=== PATIENT | female | born 1950 ===

== ENCOUNTER 2020-07-28 04:12 | Observation (INO) | payer OTHER, SELFPAY ==
[2020-07-28] VITALS (9 sets, daily range): BP systolic 106–127; BP diastolic 49–83; PULSE 68–89; RESP 18–20; TEMP 36.1–37; O2SAT 94–100
--- NOTE | 2020-07-28 | ECHO_ITS ---
Patient Info Name: Joya Monreal Age: 70 years : 1950 Gender: Female Ht: 64 in Wt: 189 lbs BSA: 2.00 m2 HR: 74 bpm BP: 127 / 69 mmHg Heart Rhythm: Sinus Rhythm Technical Quality: Fair Exam Date: 07/28/2020 11:35 AM Exam Location: [facility] Patient Status: Outpatient Admit Date: 07/28/2020 Staff Ordering Physician: Ashely Santacruz MD Clinic Administrator: Neena Rowe RDCS Attending Provider: Ashely Santacruz MD Exam Type: CA echo doppler color flow Study Info Indications - PE Complete two-dimensional, color flow and Doppler transthoracic echocardiogram is performed. Summary 1. Complete two-dimensional, color flow and Doppler transthoracic echocardiogram is performed. 2. Left ventricular systolic function is normal, estimated at 60-65%. 3. There is mildly increased left ventricular wall thickness. 4. The left ventricular diastolic function is grade I diastolic dysfunction. 5. There is no aortic valve stenosis. 6. There is trace mitral valve regurgitation. 7. There is trace tricuspid valve regurgitation. 8. No pulmonary hypertension, estimated pulmonary arterial systolic pressure is 22 mmHg. Left Ventricle Left ventricular chamber dimension is normal. Left ventricular systolic function is normal, estimated at 60-65%. There is mildly increased left ventricular wall thickness. The left ventricular diastolic function is grade I diastolic dysfunction. Right Ventricle Right ventricular chamber dimension is normal. Right ventricular systolic function is normal. Left Atria Left atrial chamber dimension is normal. Right Atria Right atrial chamber dimension is normal. Aortic Valve The aortic valve is not well visualized. There is no aortic valve stenosis. There is mild aortic valve regurgitation. Pulmonic Valve The pulmonic valve is not well visualized. Mitral Valve The mitral valve has thickened leaflets. There is trace mitral valve regurgitation. The mitral valve annulus is mildly calcified. Tricuspid Valve The tricuspid valve leaflets are normal. There is trace tricuspid valve regurgitation. No pulmonary hypertension, estimated pulmonary arterial systolic pressure is 22 mmHg. Pericardium/Pleural The pericardium appears normal. Inferior Vena Cava Normal inferior vena cava with >50% collapse upon inspiration consistent with normal right atrial pressure, 5 mmHg. Aorta The aortic root size at the sinus of Valsalva is normal. There is mild aortic atherosclerosis. Left Ventricular Outflow Tract Name Value Normal LVOT 2D LVOT Diameter 2.0 cm LVOT Doppler LVOT Peak Gradient 5 mmHg LVOT Mean Gradient 3 mmHg LVOT VTI 26 cm LVOT VTI/AV VTI Ratio 0.9 LVOT Stroke Volume 79 ml LVOT CO 5.0 l/min LVOT CI 2.5 l/min/m2 Pulmonic Valve Name Value
--- NOTE | ~2020-07-28 | CT_ITS ---
EXAMINATION: CTA chest PE protocol DATE: 07/30/2020 11:54 INDICATION: Left chest pain. TECHNIQUE: Computed tomography angiography (CTA) of the chest was performed with 100 mL Omnipaque-350 intravenous contrast timed to evaluate the pulmonary arteries. Coronal maximum intensity projection 3D-reconstructions were created by the technologist. Automated exposure control and iterative reconst ruction technique were employed. The dose-length product was 379.55 mGy-cm. COMPARISON: Chest CT 07/28/2020 FINDINGS: There is mild atelectasis bilaterally. There are airspace and groundglass opacities in basi lar left lower lobe. A calcified right lower lobe nodule is consistent with old granulomatous disease . There is a small left pleural effusion. The heart size is normal. 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 Again seen are acute pulmonary emboli in basilar left lower lobe. There is mild thorac ic spondylosis. IMPRESSION: 1. Unchanged distribution of acute pulmonary emboli in basilar left lower lobe. 2. Worsened airspace and groundglass opacities in basilar left lower lobe, consistent with infarct. 3. Worsened small left pleural effusion. Reviewed, dictated and finalized at location A. IMPRESSION: 1. Unchanged distribution of acute pulmonary emboli in basilar left lower lobe. 2. Worsened airspace and groundglass opacities in basilar left lower lobe, cons istent with infarct. 3. Worsened small left pleural effusion.
--- NOTE | ~2020-07-28 | US_ITS ---
EXAMINATION: US venous doppler LE EXAM DATE: 07/28/2020 14:43 INDICATION: Pulmonary emboli. TECHNIQUE: Multiple grayscale, color flow and Doppler images of the lower extremity deep venous syste ms bilaterally were obtained and reviewed. Comparison is made to prior examination from 10/21/2017. Co rrelation was made with pulmonary CT from earlier same date. FINDINGS: Right side: The right common femoral, femoral and profunda veins demonstrate normal color flow, respi ratory variation, augmentation and compressibility. Compressibility, color flow confirmed within the right popliteal, posterior tibial, peroneal, and greater saphenous veins. Left side: The left common femoral, femoral and profunda veins demonstrate normal color flow, respira tory variation, augmentation and compressibility. Compressibility, color flow confirmed within the l eft popliteal, posterior tibial, peroneal, and greater saphenous veins. IMPRESSION: 1. No lower extremity deep venous thrombosis bilaterally. Reviewed, dictated and finalized at location A.
--- NOTE | ~2020-07-28 | CT_ITS ---
EXAMINATION: CTA chest PE abdomen pel DATE: 07/28/2020 05:35 INDICATION: Chest pain. Left abdominal pain. TECHNIQUE: Computed tomography angiography (CTA) of the chest was performed with 100 mL Omnipaque-350 intravenous contrast timed to evaluate the pulmonary arteries. Coronal maximum intensity projection 3D-reconstructions were created by the technologist. Computed tomography (CT) of the abdomen and pelv is was performed with intravenous contrast. Automated exposure control and iterative reconstruction t echnique were employed. The dose-length product was 1268.70 mGy-cm. COMPARISON: Chest CT 10/20/2017 FINDINGS: CTA chest: The lungs demonstrate mild atelectasis. There is a stable 6 mm nodule in right middle lobe , likely benign. A calcified right lung nodule is consistent with old granulomatous disease. There is a trace left pleural effusion. The heart size is normal. No pericardial effusion. There are acute pu lmonary emboli in left lower lobe. CT abdomen and pelvis: The liver and gallbladder are normal. Calcifications in the spleen are consist ent with old granulomatous disease. The pancreas, adrenal glands, and kidneys are normal. There is fa t stranding at the root of the small bowel mesentery, likely edema or inflammation/scarring. There is diverticulosis of the colon without evidence of diverticulitis. There are no dilated loops of bowel. The appendix is not visualized. There are no pathologically enlarged lymph nodes. There is no free i ntraperitoneal fluid. There is severe lumbar spondylosis. IMPRESSION: 1. Acute left lower lobe pulmonary emboli. 2. Fat stranding at the root of the small bowel mesentery, likely edema or inflammation/scarring (mes enteric panniculitis). Reviewed, dictated and finalized at location A. IMPRESSION: 1. Acute left lower lobe pulmonary emboli. 2. Fat stranding at the root of the small bowel mesentery, likely edema or infl ammation/scarring (mesenteric panniculitis).
--- NOTE | 2020-07-28 04:34 | ECG_ITS ---
Measurements Intervals [place] Rate: 75 P: 44 ID: [id number] QRS: -30 QRSD: 102 T: 49 QT: 374 QTc: 420 Interpretive Statements SINUS RHYTHM BASELINE ARTIFACT- I, II, III, AVR, AVL, AVF, V2-V3 NORMAL ECG Electronically Signed On 07-28-2020 6:58:06 CDT by Vince Aj D.O.
--- NOTE | 2020-07-28 04:36 | ED.GENADULT ---
HPI - General Adult General Chief complaint: Chest Pain Stated complaint: chest pain Time Seen by Provider: 07/28/20 04:28 History of Present Illness HPI narrative: Patient is a 70-year-old female who presents to the emergency department with chief complaint of chest pain and shortness of breath. Patient reports that she had sudden onset this morning of sharp chest pain on the left side of her chest that radiates to her neck. Patient states this feels similar to whenever she had a pulmonary embolism back in 2012 patient states that she has been off of anticoagulants for several years as they thought that it was just a sporadic occurrence of the pulmonary embolism. Patient states that tonight it feels very similar to whenever she is had the PE in the past denies history of cardiac disease also reports that she has some mild tenderness in her abdomen as well patient denies fever denies cough denies trauma. Patient denies any recent surgeries or other increased risk for thromboembolic event. Related Data Allergies Allergy/AdvReac Type Severity Reaction Status Date / Time atorvastatin Allergy Unknown Verified 03/08/12 13:09 No Known Allergies Allergy Unverified 10/20/17 21:34 Review of Systems Review of Systems: Narrative: A 10 system review of systems was completed on the patient and is negative except for what is stated in the HPI. Nursing and ancillary documentation was reviewed. [facility] Family History Family History (Updated 10/30/15 @ 23:21 by DOCTOR UNKNOWN) Sibling Patient's sister is in good health Mother Family history of malignant neoplasm of breast in first degree relative Patient's mother is Father Family history of malignant neoplasm of esophagus Patient's father is Social History Social History Smoking status: Never smoker Alcohol intake: current Comments Past medical history significant for pulmonary embolism, hypothyroidism, anxiety. Surgical history the patient has had a shoulder repair Social history the patient lives with her denies illicit drug use Exam Narrative: Exam Narrative: GENERAL: Well-appearing, well-nourished, and in no acute distress. HEAD: Normocephalic, atraumatic. EYES: PERRLA and EOMI. ENT: Nares clear, no rhinorrhea or epistaxis. Mucous membranes moist. NECK: Supple. CHEST: Clear to auscultation. No respiratory distress. HEART: Regular rate and rhythm. No murmur heard. Normal peripheral pulses. ABDOMEN: Soft, nontender, nondistended, normal active bowel sounds. EXTREMITIES: Normal range of motion. No edema. SKIN: Warm, dry, no rash. NEURO: No focal deficits. Alert and oriented x3. PSYCH: Normal mood and affect. Course Course Emergency Course: EKG is sinus rhythm rate of [address] elevation or ST depression there is motion artifact in V2 Vital Signs Vital signs: Vital Signs Temperature 36.3 C L 07/28/20 04:19 Pulse Rate 89 07/28/20 04:19 Respiratory Rate 19 07/28/20 04:19 Blood Pressure 123/70 07/28/20 04:19 Pulse Oximetry 97 07/28/20 04:19 Temperature 36.3 C L 07/28/20 04:19 Pulse Rate 76 07/28/20 06:26 Respiratory Rate 20 07/28/20 06:26 Blood Pressure 114/56 L 07/28/20 06:26 Pulse Oximetry 98 07/28/20 06:26 Medical Decision Making Vital Signs Vital Signs: Vital Signs Temperature 36.3 C L 07/28/20 04:19 Pulse Rate 89 07/28/20 04:19 Respiratory Rate 19 07/28/20 04:19 Blood Pressure 123/70 07/28/20 04:19 Pulse Oximetry 97 07/28/20 04:19 Temperature 36.3 C L 07/28/20 04:19 Pulse Rate 76 07/28/20 06:26 Respiratory Rate 20 07/28/20 06:26 Blood Pressure 114/56 L 07/28/20 06:26 Pulse Oximetry 98 07/28/20 06:26 Lab Data Result diagrams: 07/28/20 04:53 07/28/20 04:53 Labs: Lab Results 07/28/20 07/28/20 07/28/20 Range/Units 04:53 04:53 04:53 WBC 7.4 (4.5-10.0) K/mm3 RBC 4.78 (4.2-5.4) M
[2020-07-28] MEDS: ASPIRIN 81 MG CHEWABLE TABLET 324 MG PO (04:44)
[2020-07-28] MEDS: ONDANSETRON INJ 4 MG/2 ML VIAL IV PUSH ×2 (04:44→13:09)
[2020-07-28] MEDS: MORPHINE SULFATE (*CRX) 4 MG/ML INJ IV PUSH ×5 (04:45→20:58)
[2020-07-28 05:02] LABS: Basophils Absolute Auto 0.1 K/mm3 (0.0-0.1); Basophils Percent Auto 0.9 % (0.2-1.2); Eosinophils Absolute Auto 0.2 K/mm3 (0-0.3); Eosinophils Percent Auto 3.1 % (0-4.4); Hematocrit 42.4 % (37.0-47.0); Hemoglobin 14.3 g/dL (12.0-15.0); Immature Granulocyte Absolute 0.02 K/mm3 (0.00-0.031); Immature Granulocyte Percent A 0.3 % (0-0.5); Lymphocytes Absolute Auto 2.59 K/mm3 (0.9-3.2); Mean Corpuscular HGB Conc 33.7 g/dl (32-36); Mean Corpuscular Hemoglobin 29.9 pg (26-34); Mean Corpuscular Volume 88.7 fl (80-100); Mean Platelet Volume 9.8 fl (7.4-10.4); Monocytes Absolute Auto 0.6 K/mm3 (0.1-0.6); Monocytes Percent Auto 7.6 % (2.6-8.5); Neutrophils Absolute Auto 3.9 K/mm3 (1.3-6.7); Neutrophils Percent Auto 53.1 % (45.5-73.1); Platelet Count Result 221 k/mm3 (150-375); Red Blood Count 4.78 M/mm3 (4.2-5.4); Red Cell Distribution Width 13.4 % (11.5-14.5); White Blood Count 7.4 K/mm3 (4.5-10.0)
[2020-07-28 05:15] LABS: Alanine Aminotransferase 18 U/L (4-35); Albumin Level 4.7 g/dL (3.5-5.1); Alkaline Phosphatase 109 U/L (38-126); Anion Gap 7 mmol/L (8-16); Aspartate Amino Transferase 27 U/L (14-36); Bilirubin,Total 0.7 mg/dL (0.2-1.3); Blood Urea Nitrogen 18 mg/dL (7-17); Calcium 9.4 mg/dL (8.4-10.2); Carbon Dioxide 29 mmol/L (22-30); Chloride 105 mmol/L (98-107); Estimated CRCL calculation 56 ml/min; Estimated Glomerular Filt Rate > 60; Glucose 124 mg/dL (65-105); Lipase 72 U/L (23-300); Potassium 4.1 mmol/L (3.4-5.0); Sodium 141 mmol/L (137-145)
[2020-07-28 05:16] LABS: INR 0.9; Partial Thromboplastin Time 30.6 SECONDS (22.3-36.8); Prothrombin Time 12.7 Seconds (11.1-14.7)
[2020-07-28] MEDS: NITROGLYCERIN SL 0.4 MG TABLET SUBLINGUAL (05:17)
--- NOTE | 2020-07-28 05:22 | PC.NURSE ---
pt to radiology at this time.
[2020-07-28 05:27] LABS: NT Pro B Type Natriuretic Pept 45 pg/mL (5-100); Troponin I < 0.012 ng/mL (0.000-0.034)
--- NOTE | 2020-07-28 05:34 | PC.NURSE ---
Per ALKA Ferrer, no UA needed at this time.
[2020-07-28] MEDS: HEPARIN SODIUM 5,000 UNITS/ML VIAL 5500 UNITS IV PUSH (06:28)
[2020-07-28] MEDS: HEPARIN SOD/D5W 100 UNITS/ML 25,000 UNITS/250 ML BAG 12 UNITS IV CONT (06:30)
--- NOTE | 2020-07-28 08:00 | ADMGEN ---
This patient, Joya Monreal, was admitted to Medical Room 250-01. Patient/family oriented to hospital policies and general routines including ID bracelet, bed and alarms, visiting hours, pain management, procedures, bathroom and other care routines, personal items, smoking policy, room service/diet, and visiting hours. Information on how to activate the Rapid Response Team has been discussed. Patient/Family are encouraged to report perceived risks to care and to ask questions if they do not understand what they are told or what they should do.
[2020-07-28 08:29] LABS: Basophils Absolute Auto 0.1 K/mm3 (0.0-0.1); Basophils Percent Auto 0.6 % (0.2-1.2); Eosinophils Absolute Auto 0.2 K/mm3 (0-0.3); Eosinophils Percent Auto 2.2 % (0-4.4); Hematocrit 40.3 % (37.0-47.0); Hemoglobin 13.5 g/dL (12.0-15.0); Immature Granulocyte Absolute 0.01 K/mm3 (0.00-0.031); Immature Granulocyte Percent A 0.1 % (0-0.5); Lymphocytes Absolute Auto 1.83 K/mm3 (0.9-3.2); Lymphocytes Percent Auto 20.6 % (18.3-44.2); Mean Corpuscular HGB Conc 33.5 g/dl (32-36); Mean Corpuscular Hemoglobin 29.5 pg (26-34); Mean Corpuscular Volume 88.2 fl (80-100); Mean Platelet Volume 9.9 fl (7.4-10.4); Monocytes Absolute Auto 0.5 K/mm3 (0.1-0.6); Monocytes Percent Auto 5.6 % (2.6-8.5); Neutrophils Absolute Auto 6.3 K/mm3 (1.3-6.7); Neutrophils Percent Auto 70.9 % (45.5-73.1); Platelet Count Result 201 k/mm3 (150-375); Red Blood Count 4.57 M/mm3 (4.2-5.4); Red Cell Distribution Width 13.6 % (11.5-14.5); White Blood Count 8.9 K/mm3 (4.5-10.0)
[2020-07-28 08:36] LABS: Prothrombin Time 14.1 Seconds (11.1-14.7)
[2020-07-28 08:37] LABS: Troponin I < 0.012 ng/mL (0.000-0.034)
--- NOTE | 2020-07-28 10:42 | PM.IMHP ---
H&P: HPI History of Present Illness Date/Time: 07/28/20 10:42 patient is 70-year-old female with a past medical history of pulmonary emboli not sure exact date 2012 or 2015 patient was was given heparin for 6 months, and it was stopped, today patient presented emergency depart with complaint of chest pain patient stated her symptoms are similar to when she had her 1st PE, CTA of the chest does show patient has acute left lower lobe pulmonary emboli. Patient started on heparin from emergency depart, so the chest pain has improved, patient 3 sets of cardiac enzymes are negative [place] was ruled out, to further evaluate cardiac echo lower extremity Doppler are ordered and are pending. 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 the pain is is controlled is not bothersome patient will follow-up with her primary further recommended, will continue to monitor overnight and switch patient to Xarelto and discharge the patient home Chief Complaint: Chest pain Review of Systems Review of Systems: All systems reviewed & are unremarkable except as noted in HPI and below PMFSH Family History Family History (Updated 10/30/15 @ 23:21 by DOCTOR UNKNOWN) Sibling Patient's sister is in good health Mother Family history of malignant neoplasm of breast in first degree relative Patient's mother is Father Family history of malignant neoplasm of esophagus Patient's father is Social History Social History Smoking status: Never smoker Alcohol intake: never Substance use: never Gender identity (if verbalized by the patient): Female Spiritual care concerns: No Meds Home Medications and Allergies Home Medications Medication Instructions Recorded Confirmed Type atorvastatin 20 mg PO DAILY 07/28/20 07/28/20 History levothyroxine 150 mcg PO DAILY 07/28/20 07/28/20 History sertraline 100 mg PO DAILY 07/28/20 07/28/20 History Allergies Allergy/AdvReac Type Severity Reaction Status Date / Time atorvastatin Allergy Unknown Fatigued Verified 07/28/20 08:09 Vital Signs Vital Signs - 24 hr 07/28/20 04:19 07/28/20 06:26 07/28/20 07:00 Temperature 97.3 F L Pulse Rate 89 76 73 Respiratory Rate 19 20 18 Blood Pressure 123/70 114/56 L Pulse Oximetry 100 98 96 07/28/20 08:00 Temperature 98.6 F Pulse Rate 71 Respiratory Rate 18 Blood Pressure 127/69 Pulse Oximetry 97 Exam Narrative: Exam Narrative: Moderately obese Patient is comfortable, NAD HEENT: eyes are clear and none icteric LUNGS: Bilateral fair air entry minimum rhonchi HEART: RR S1S2 ABD: BS+, Soft and diffusely tender in left lower side Lower extremities: no edema SKIN: nonjaundiced Neuro: grossly intact. H&P: Results Labs Labs: Short CBC 07/28/20 07/28/20 Range/Units 04:53 07:47 WBC 7.4 8.9 (4.5-10.0) K/mm3 Hgb 14.3 13.5 (12.0-15.0) g/dL Hct 42.4 40.3 (37.0-47.0) % Plt Count 221 201 (150-375) k/mm3 BMP 07/28/20 04:53 Sodium 141 Potassium 4.1 Chloride 105 Carbon Dioxide 29 BUN 18 H Creatinine 0.90 Glucose 124 H Calcium 9.4 Cardiac Enzymes 07/28/20 07/28/20 Range/Units 04:53 07:47 Troponin I < 0.012 < 0.012 (0.000-0.034) ng/mL Liver Function 07/28/20 Range/Units 04:53 Total Bilirubin 0.7 (0.2-1.3) mg/dL AST 27 (14-36) U/L ALT 18 (4-35) U/L Alkaline Phosphatase 109 (38-126) U/L Albumin 4.7 (3.5-5.1) g/dL Assessment and Plan Assessment and plan (1) Acute pulmonary embolism: Qualifiers: Acute cor pulmonale presence: without acute cor pulmonale Pulmonary embolism type: unspecified Qualified Code(s): I26.99 - Other pulmonary embolism without acute cor pulmonale Code(s): I26.99 - Other pulmonary embolism without acute cor pulmonale Status: Acute Assessment and Plan: 07/28/20 10:42 patient is 70-year-old female with a past m
[2020-07-28 11:20] LABS: Troponin I < 0.012 ng/mL (0.000-0.034)
[2020-07-28 18:21] LABS: Partial Thromboplastin Time 59.8 SECONDS (22.3-36.8)
[2020-07-28] MEDS: HEPARIN SODIUM 5,000 UNITS/ML VIAL 2500 UNITS IV PUSH (18:30)
[2020-07-29] VITALS (10 sets, daily range): BP systolic 113–115; BP diastolic 49–66; PULSE 69–77; RESP 14–20; TEMP 36.1–36.7; O2SAT 91–96
[2020-07-29] MEDS: MORPHINE SULFATE (*CRX) 4 MG/ML INJ IV PUSH (00:50)
--- NOTE | 2020-07-29 01:00 | ECG_ITS ---
Measurements Intervals [place] Rate: 77 P: 40 WV: 177 QRS: -23 QRSD: 105 T: 30 QT: 369 QTc: 418 Interpretive Statements SINUS RHYTHM BASELINE ARTIFACT- II, III, AVF NORMAL ECG Electronically Signed On 07-29-2020 15:36:38 CDT by Vince Aj D.O.
[2020-07-29] MEDS: HYDROcodone/acetaminophen (*CRX) 5-325 MG TABLET 1 TAB (02:40)
[2020-07-29 04:45] LABS: Troponin I < 0.012 ng/mL (0.000-0.034)
[2020-07-29 04:58] LABS: Partial Thromboplastin Time 86.1 SECONDS (22.3-36.8)
[2020-07-29] MEDS: HEPARIN SOD/D5W 100 UNITS/ML 25,000 UNITS/250 ML BAG 13 UNITS IV CONT (05:10)
--- NOTE | 2020-07-29 05:23 | PC.NURSE ---
At 0100 pt states Lt side chest pain is worse with no relief from MS, skin warm and dry no resp. distress noted, B/P 107/47, p-78.R-20,SPO2 94%.Malgorzata NARANJO called and EKG and troponin ordered.
[2020-07-29 07:03] LABS: Basophils Percent Auto 0.5 % (0.2-1.2); Eosinophils Absolute Auto 0.2 K/mm3 (0-0.3); Hematocrit 37.9 % (37.0-47.0); Hemoglobin 12.6 g/dL (12.0-15.0); Immature Granulocyte Absolute 0.03 K/mm3 (0.00-0.031); Immature Granulocyte Percent A 0.4 % (0-0.5); Lymphocytes Absolute Auto 2.07 K/mm3 (0.9-3.2); Lymphocytes Percent Auto 26.2 % (18.3-44.2); Mean Corpuscular HGB Conc 33.2 g/dl (32-36); Mean Corpuscular Hemoglobin 29.6 pg (26-34); Mean Platelet Volume 9.5 fl (7.4-10.4); Monocytes Absolute Auto 0.8 K/mm3 (0.1-0.6); Monocytes Percent Auto 9.5 % (2.6-8.5); Neutrophils Absolute Auto 4.8 K/mm3 (1.3-6.7); Neutrophils Percent Auto 60.4 % (45.5-73.1); Platelet Count Result 168 k/mm3 (150-375); Red Blood Count 4.26 M/mm3 (4.2-5.4); Red Cell Distribution Width 13.7 % (11.5-14.5); White Blood Count 7.9 K/mm3 (4.5-10.0)
[2020-07-29 07:18] LABS: Anion Gap 5 mmol/L (8-16); Blood Urea Nitrogen 11 mg/dL (7-17); Calcium 8.8 mg/dL (8.4-10.2); Carbon Dioxide 29 mmol/L (22-30); Chloride 102 mmol/L (98-107); Estimated CRCL calculation 62 ml/min; Estimated Glomerular Filt Rate > 60; Glucose 120 mg/dL (65-105); Potassium 4.1 mmol/L (3.4-5.0); Sodium 136 mmol/L (137-145)
[2020-07-29 07:22] LABS: Partial Thromboplastin Time 64.9 SECONDS (22.3-36.8)
[2020-07-29] MEDS: HYDROcodone/acetaminophen (*CRX) 5-325 MG TABLET 1 TAB PO ×2 (08:17→18:29)
[2020-07-29] MEDS: HEPARIN SODIUM 5,000 UNITS/ML VIAL 2500 UNITS IV PUSH (08:23)
--- NOTE | 2020-07-29 12:35 | PM.IMPN ---
Progress Note: A&P Assessment and Plan (1) Acute pulmonary embolism: Qualifiers: Acute cor pulmonale presence: without acute cor pulmonale Pulmonary embolism type: unspecified Qualified Code(s): I26.99 - Other pulmonary embolism without acute cor pulmonale Code(s): I26.99 - Other pulmonary embolism without acute cor pulmonale Status: Acute Assessment and Plan: 07/29/20 12:35 07/28 patient is 70-year-old female with a past medical history of pulmonary emboli not sure exact date 2012 or 2015 patient was was given heparin for 6 months, and it was stopped, today patient presented emergency depart with complaint of chest pain patient stated her symptoms are similar to when she had her 1st PE, CTA of the chest does show patient has acute left lower lobe pulmonary emboli. Patient started on heparin from emergency depart, so the chest pain has improved, patient 3 sets of cardiac enzymes are negative [place] was ruled out, to further evaluate cardiac echo lower extremity Doppler are ordered and are pending. 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 Status: Acute Additional Plan Patient pain is reasonably well controlled most likely secondary to stress and inflammation patient will follow-up with her primary care for further evaluation and management Subjective Date/time seen: 07/29/20 12:35 07/28 patient is 70-year-old female with a past medical history of pulmonary emboli not sure exact date 2012 or 2015 patient was was given heparin for 6 months, and it was stopped, today patient presented emergency depart with complaint of chest pain patient stated her symptoms are similar to when she had her 1st PE, CTA of the chest does show patient has acute left lower lobe pulmonary emboli. Patient started on heparin from emergency depart, so the chest pain has improved, patient 3 sets of cardiac enzymes are negative [place] was ruled out, to further evaluate cardiac echo lower extremity Doppler are ordered and are pending. 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 07/29 patient with left lower lobe PE complains of left-sided chest pain the pain is rated sometime 10/10 but is controlled with [place], denies any complaint shortness of breath or dizziness, her cardiac echo is essentially normal, lower extremity Doppler are negative for DVT, will monitor patient 1 more day and continue on heparin if the pain persists will repeat CTA of the chest tomorrow as we are not able to to the CTA of the chest today since patient received contrast yesterday to prevent any kidney damage Review of Systems Review of Systems: All systems reviewed & are unremarkable except as noted in HPI and below Exam Narrative: Exam Narrative: Moderately obese Patient is comfortable, NAD HEENT: eyes are clear and none icteric LUNGS: Bilateral fair air entry minimum rhonchi HEART:
--- NOTE | 2020-07-29 13:43 | PC.NURSE ---
On 07/29/20, the student, [Lydia Sow ], provided care and [facility]. I have reviewed the student's documentation and agree with the findings.
[2020-07-29 14:55] LABS: Partial Thromboplastin Time 77.9 SECONDS (22.3-36.8)
[2020-07-29 20:48] LABS: Partial Thromboplastin Time 91.4 SECONDS (22.3-36.8)
[2020-07-29 22:09] LABS: Prothrombin Time 13.9 Seconds (11.1-14.7)
[2020-07-30] VITALS (8 sets, daily range): BP systolic 124–130; BP diastolic 47–62; PULSE 67–100; RESP 16–20; TEMP 36.6–37.2; O2SAT 94–95
[2020-07-30] MEDS: HEPARIN SOD/D5W 100 UNITS/ML 25,000 UNITS/250 ML BAG 14 UNITS IV CONT (01:35)
[2020-07-30 05:32] LABS: Hematocrit 38.3 % (37.0-47.0); Hemoglobin 12.7 g/dL (12.0-15.0); Mean Corpuscular HGB Conc 33.2 g/dl (32-36); Mean Corpuscular Hemoglobin 29.8 pg (26-34); Mean Corpuscular Volume 89.9 fl (80-100); Mean Platelet Volume 9.8 fl (7.4-10.4); Platelet Count Result 177 k/mm3 (150-375); Red Blood Count 4.26 M/mm3 (4.2-5.4); Red Cell Distribution Width 13.4 % (11.5-14.5); White Blood Count 6.2 K/mm3 (4.5-10.0)
[2020-07-30 05:49] LABS: Prothrombin Time 13.7 Seconds (11.1-14.7)
[2020-07-30 06:07] LABS: Anion Gap 2 mmol/L (8-16); Blood Urea Nitrogen 11 mg/dL (7-17); Calcium 8.7 mg/dL (8.4-10.2); Carbon Dioxide 32 mmol/L (22-30); Chloride 103 mmol/L (98-107); Estimated CRCL calculation 70 ml/min; Estimated Glomerular Filt Rate > 60; Glucose 113 mg/dL (65-105); Potassium 3.7 mmol/L (3.4-5.0); Sodium 137 mmol/L (137-145)
[2020-07-30 08:44] LABS: Partial Thromboplastin Time 127.6 SECONDS (22.3-36.8)
[2020-07-30] MEDS: HYDROcodone/acetaminophen (*CRX) 5-325 MG TABLET 1 TAB PO (13:57)
[2020-07-30 15:24] LABS: Partial Thromboplastin Time 75.6 SECONDS (22.3-36.8)
--- NOTE | 2020-07-30 17:01 | PM.CNPUL ---
Assessment and Plan Assessment and plan (1) Acute pulmonary embolism: Qualifiers: Acute cor pulmonale presence: without acute cor pulmonale Pulmonary embolism type: unspecified Qualified Code(s): I26.99 - Other pulmonary embolism without acute cor pulmonale Code(s): I26.99 - Other pulmonary embolism without acute cor pulmonale Status: Acute Assessment and Plan: Patient currently with left lower lobe PE and wedge-shaped infiltrates on her CT scan consistent with pulmonary infarction. Patient with continued pleuritic chest pain on the left which can be expected with a pulmonary infarction. I agree with continuation of anticoagulation at this time. Patient has no complications from her anticoagulation in the hospital now. I agree with initiation of ibuprofen 400 mg p.o. Q 6 p.r.n. and try to minimize the narcotics. Regarding her PE at this time patient did have a plane ride for 3 hours from [place] on 07/20. She has no history of cancer but she does have a history of a previous PE in 2012. I do not know the details of that pulmonary embolism and whether that was provoked or unprovoked. In my opinion giving her low risk of bleeding and a 2nd PE I would favor lifelong anticoagulation at this point. Patient is 70 and now has a history of 2 pulmonary embolisms. She may have a genetic predisposition to blood clot formation and this may have implications for her treatment as well as implications for her children. Recommend further discussions with a strategy director regarding the utility of a hypercoagulable workup at this point. Patient can be discharged home from my perspective. Will sign off. Please call for further questions. History of Present Illness History of Present Illness Consult date: 07/30/20 Requesting physician: Ashely Santacruz MD Reason for consult: pulmonary embolism Chief complaint: Acute pulmonary embolism Narrative: This is a new pulmonary consult for left lower lobe PE and left pleuritic chest pain. 70-year-old woman with a history of PE in 2012. At that time she was initially treated with Coumadin but then converted to shots. She does not know why she was converted to shots. She was treated for 6 months and then her physician told her to stop the anti coagulation. Patient took a plane ride from [place] to her current location in [facility] on 07/20. She noticed no swelling in her lower extremities at that time. 04/06/2026 the patient to woke up at night with left-sided neck and shoulder pain. Patient presented to the emergency department and was found to have left lower lobe pulmonary emboli. Patient was started on IV heparin. Patient denied any dizziness syncope and had some shortness of breath. Patient continued with left-sided pleuritic chest pain rated at 8 of 10 on deep breathing and 7 of 10 on shallow breathing on 07/30. Patient had a repeat CT scan of the chest demonstrating wedge-shaped infarctions that had progressed since her prior CT scan. Patient has been hemodynamically stable. Patient denies any shortness of breath at rest and has some dyspnea on exertion. Patient is not requiring supplemental oxygen at this point. Patient denies any hemoptysis, cough, fever, phlegm production at this time. Review of Systems Review of Systems: All systems reviewed & are unremarkable except as noted in HPI and below Eyes: Eyes: Reports no additional eye complaints ENT: Reports system reviewed and no additional complaints, except as documented Cardiovascular: Cardiovascular: Reports no additional cardiovascular complaints Respiratory: Respiratory: Reports no additional respiratory complaints Gastrointestinal: Gastrointestinal: Reports no additional gastrointestinal complaints Musculoskeletal: Musculoskeletal: Reports no additional musculoskeletal complaints Integumentary/Breasts: Skin/Breast: Reports system reviewed and no additional complaints, except as docu Ne
--- NOTE | 2020-07-30 17:03 | PM.IMPN ---
Progress Note: A&P Assessment and Plan (1) Acute pulmonary embolism: Qualifiers: Acute cor pulmonale presence: without acute cor pulmonale Pulmonary embolism type: unspecified Qualified Code(s): I26.99 - Other pulmonary embolism without acute cor pulmonale Code(s): I26.99 - Other pulmonary embolism without acute cor pulmonale Status: Acute Assessment and Plan: 07/30/20 17:03 07/28 patient is 70-year-old female with a past medical history of pulmonary emboli not sure exact date 2012 or 2015 patient was was given heparin for 6 months, and it was stopped, today patient presented emergency depart with complaint of chest pain patient stated her symptoms are similar to when she had her 1st PE, CTA of the chest does show patient has acute left lower lobe pulmonary emboli. Patient started on heparin from emergency depart, so the chest pain has improved, patient 3 sets of cardiac enzymes are negative AR was ruled out, to further evaluate cardiac echo lower extremity Doppler are ordered and are pending. 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 07/29 patient with left lower lobe PE complains of left-sided chest pain the pain is rated sometime 10/10 but is controlled with [place], denies any complaint shortness of breath or dizziness, her cardiac echo is essentially normal, lower extremity Doppler are negative for DVT, will monitor patient 1 more day and continue on heparin if the pain persists will repeat CTA of the chest tomorrow as we are not able to to the CTA of the chest today since patient received contrast yesterday to prevent any kidney damage. 07/30 patient contine to c/o left sided CP with deep breath, cough and with movement, there are no associated symptoms of shortness breath or palpitation, no fever or chills, to further evaluate repeat CTA of chest was done which showed 1. Unchanged distribution of acute pulmonary emboli in basilar left lower lobe. 2. Worsened airspace and groundglass opacities in basilar left lower lobe, consistent with infarct. Discussed with crop or livestock tenant farmer recommended start NSAID, patient is given Ibuprofen 400mg PO q6 PRN, patient will be seen by the pulmologist and further recommendation to follow. 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 Status: Acute Assessment and Plan: Patient pain is reasonably well controlled most likely secondary to stress and inflammation patient will follow-up with her primary care for further evaluation and management Subjective Date/time seen: 07/30/20 17:03 07/28 patient is 70-year-old female with a past medical history of pulmonary emboli not sure exact date 2012 or 2015 patient was was given heparin for 6 months, and it was stopped, today patient presented emergency depart with complaint of chest pain patient stated her symptoms are similar to when she had her 1st PE, CTA of the chest does show patient has acute left lower lobe pulmonary emboli. Patient started on heparin from emergency depart, so the chest pain has improved, patient 3 sets of cardiac enzymes are negative AR was ruled out, to further evaluate cardiac echo lower extremity Doppler are ordered and are pending. 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 07/29 patient with left lower lobe PE complains of left-sided chest pain the pain is rated sometime 10/10 but is controlled with [place], denies any complaint shortness of breath or dizziness, her cardiac echo i
[2020-07-30] MEDS: RIVAROXABAN 15 MG TABLET PO (18:45)
[2020-07-31] VITALS: PULSE 65
[2020-07-31 04:00] VITALS: PULSE 69
[2020-07-31 04:30] VITALS: BP 125/63; PULSE 65; RESP 16; TEMP 36.6; O2SAT 93
[2020-07-31 05:37] LABS: Hemoglobin 12.9 g/dL (12.0-15.0); Mean Corpuscular HGB Conc 33.1 g/dl (32-36); Mean Corpuscular Hemoglobin 29.9 pg (26-34); Mean Corpuscular Volume 90.3 fl (80-100); Mean Platelet Volume 9.4 fl (7.4-10.4); Platelet Count Result 191 k/mm3 (150-375); Red Blood Count 4.32 M/mm3 (4.2-5.4); Red Cell Distribution Width 13.2 % (11.5-14.5)
[2020-07-31 05:49] LABS: Anion Gap 2 mmol/L (8-16); Blood Urea Nitrogen 12 mg/dL (7-17); Calcium 8.7 mg/dL (8.4-10.2); Carbon Dioxide 33 mmol/L (22-30); Chloride 104 mmol/L (98-107); Estimated CRCL calculation 62 ml/min; Estimated Glomerular Filt Rate > 60; Glucose 120 mg/dL (65-105); Potassium 4.1 mmol/L (3.4-5.0); Sodium 139 mmol/L (137-145)
[2020-07-31 06:14] LABS: INR 1.4; Prothrombin Time 17.7 Seconds (11.1-14.7)
[2020-07-31] MEDS: LEVOTHYROXINE SODIUM 150 MCG TABLET PO (06:16)
[2020-07-31 08:00] VITALS: PULSE 72
[2020-07-31] MEDS: ATORVASTATIN 20 MG TABLET PO (08:07)
[2020-07-31] MEDS: RIVAROXABAN 15 MG TABLET PO (08:07)
[2020-07-31] MEDS: SERTRALINE HCL 50 MG TABLET 100 MG PO (08:07)
--- NOTE | 2020-07-31 10:12 | PM.DS ---
DS: Admitting Diagnosis Admitting Diagnosis Admitting Diagnosis: Chief Complaint: Chest pain DS: Discharge Diagnosis Discharge Diagnosis (1) Acute pulmonary embolism: Qualifiers: Acute cor pulmonale presence: without acute cor pulmonale Pulmonary embolism type: unspecified Qualified Code(s): I26.99 - Other pulmonary embolism without acute cor pulmonale Code(s): I26.99 - Other pulmonary embolism without acute cor pulmonale Status: Acute Assessment and Plan: 07/30/20 17:03 07/28 patient is 70-year-old female with a past medical history of pulmonary emboli not sure exact date 2012 or 2015 patient was was given heparin for 6 months, and it was stopped, today patient presented emergency depart with complaint of chest pain patient stated her symptoms are similar to when she had her 1st PE, CTA of the chest does show patient has acute left lower lobe pulmonary emboli. Patient started on heparin from emergency depart, so the chest pain has improved, patient 3 sets of cardiac enzymes are negative [place] was ruled out, to further evaluate cardiac echo lower extremity Doppler are ordered and are pending. 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 07/29 patient with left lower lobe PE complains of left-sided chest pain the pain is rated sometime 10/10 but is controlled with [place], denies any complaint shortness of breath or dizziness, her cardiac echo is essentially normal, lower extremity Doppler are negative for DVT, will monitor patient 1 more day and continue on heparin if the pain persists will repeat CTA of the chest tomorrow as we are not able to to the CTA of the chest today since patient received contrast yesterday to prevent any kidney damage. 07/30 patient contine to c/o left sided CP with deep breath, cough and with movement, there are no associated symptoms of shortness breath or palpitation, no fever or chills, to further evaluate repeat CTA of chest was done which showed 1. Unchanged distribution of acute pulmonary emboli in basilar left lower lobe. 2. Worsened airspace and groundglass opacities in basilar left lower lobe, consistent with infarct. Discussed with power truck driver recommended start NSAID, patient is given Ibuprofen 400mg PO q6 PRN, patient will be seen by the pulmologist and further recommendation to follow. Patient is clinically stable, will discharge home on Xarelto, Patient to follow up with primary care provider as soon as possible. 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 Status: Acute Assessment and Plan: Patient pain is reasonably well controlled most likely secondary to stress and inflammation patient will follow-up with her primary care for further evaluation and management DS: Summary Hospital Course Reason for hospitalization: patient is 70-year-old female with a past medical history of pulmonary emboli not sure exact date 2012 or 2015 patient was was given heparin for 6 months, and it was stopped, today patient presented emergency depart with complaint of chest pain patient stated her symptoms are similar to when she had her 1st PE, CTA of the chest does show patient has acute left lower lobe pulmonary emboli. Patient started on heparin from emergency depart, so the chest pain has improved, patient 3 sets of cardiac enzymes are negative [place] was ruled out, to further evaluate cardiac echo lower extremity Doppler are ordered and are pending. 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
== END 2020-07-31 11:35 | disposition home or self-care (01) ==
LOC: ANHED 06:32 → ANH2MED 11:07
PROVIDERS: Admitting Provider Family Medicine; Emergency Provider Emergency Medicine; PCP Internal Medicine; Visit Provider Family Medicine
DX: I26.99 Other pulmonary embolism without acute cor pulmonale (principal); R07.9 Chest pain, unspecified; K65.4 Sclerosing mesenteritis; R06.02 Shortness of breath; Z86.711 Personal history of pulmonary embolism
CPT/HCPCS: 36415; 71275; 74177; 80048; 80053; 83690; 83880; 84484; 85025; 85027; 85610; 85730; 93005; 93306; 93970; 96365; 96366; 96375; 96376; 99285; A9270; G0378; J1644; J2270; J2405; Q9967

== ENCOUNTER 2024-07-13 11:53 | Emergency (ER) | payer OTHER, SELFPAY ==
--- NOTE | ~2024-07-13 | XR_ITS ---
EXAM/ PROCEDURE: XR toe 1st RT min 2V - 07/13/2024 12:15 CDT HISTORY: 74 years old Female with pain after dropping object COMPARISON: None available TECHNIQUE: Four view(s) FINDINGS/ IMPRESSION: There are no fractures or dislocations.Joint spaces are within normal limits Reviewed, dictated and finalized at location A.
--- OUTSIDE RECORDS SUMMARY | 2024-07-13 11:55 | XMS_ITS | Continuity of Care Document ---
Author Organization [facility] Address [address] [place] [address] Phone Care Team Providers Care Master Cook Name Role Phone Lourdes Turner OT Unavailable Unavailable Procedures Procedure Date Therapeutic Activities Hot or Cold Pack Manual Therapy Neuromuscular Re-Ed Therapeutic Exercise Progress Note Therapeutic Activities Therapeutic Exercise Manual Therapy Hot or Cold Pack Neuromuscular Re-Ed Therapeutic Activities Therapeutic Exercise Hot or Cold Pack Manual Therapy Therapeutic Activities Manual Therapy Hot or Cold Pack Therapeutic Exercise Therapeutic Activities OT Evaluation Low Complexity Therapeutic Exercise Advance Directives Directive Yes / No Effective Date File Name No Information Encounters Encounter Description Practice Location Reason(s) For Visit Diagnoses Date Provider Providers Copied on Encounter [facility], [place], [place], [id number], [place] tel:[phone] [place] No Information 2 Johnny Arevalo . [facility], [place], [place], [id number], [place] tel:[phone] [place] No Information 2 Harig Lourdes. . Referring Provider: Lyndon Díaz, Nikki1 [facility] [address], [place], [address]. tel:[phone] [place] [address], [place], [place], [id number], tel:[phone] [place] No Information Apr-0 6-202 2 Harig Lourdes. . Referring Provider: Lyndon Díaz, Nikki1 [facility] [address], [place], [address]. tel:[phone] [place] [address], [place], [place], [id number], tel:[phone] [place] No Information Apr-0 - 2 Harig Lourdes. . Referring Provider: Lyndon Díaz, Nikki1 [facility] [address], [place], [address]. tel:[phone] [place] [address], [id number], tel:[phone] [place] No Information Mar-3 0202 2 Harig Lourdes. . Referring Provider: Lyndon Díaz, Nikki1 [facility] [address], [place], [address]. tel:[phone] [place] [address], [id number], tel:[phone] [place] No Information Mar-2 2 Rodríguez Mattea. . Referring Provider: Lyndon Díaz, Nikki1 [facility] [address], [place], [address]. tel:[phone] Family History Family Member Type Diagnosis Age At Onset No Information Payers Payer name Insurance type Covered republican ID Georgiaa kennadoyle(s) [employer] CI [id number] Social History Type Description Quantity Date Captured Comments Sex Female Smoking Status No Information Chief Complaint And Reason For Visit No Information Reason For Referral Reason For Referral No Information History Of Present Illness Encounter Date Complaint History Of Prese nt Illness No Information Functional Status Date Functional Assessmen t No Information Instructions Date Instruction Additional Infor dimitris Prescribed activity/exercise edu cation Related to Overweight Prescribed activity/exercise edu cation Related to Overweight Dietary needs education Related to Overweight Dietary needs education Related to Overweight Assessments Type Assessment Date No Information Patient Care Teams Name Effective Dates (start - stop) Status Members No Information
--- OUTSIDE RECORDS SUMMARY | 2024-07-13 11:55 | XMS_ITS | Referral Summary ---
Author Organization [facility] Address [address] [place] [address] Care Team Providers Care Paper Coating Machine Operator Name Role Phone Vijay Schroeder MD Primary Care Provider Vijay Schroeder MD Unavailable Encounters Date Type Department Care Team Description 07/02/2024 1:09 PM CDT - 07/02/2024 11:59 PM CDT Hospital Encounter [address] [place] [address] Screening mammogram, encounter for Discharge Disposition: Discharge to home or self care 06/25/[address] [phone] Referral, Self Mammogram 05/20/2024 Orders Only [facility] at the [address] [phone] Vijay Schroeder MD 04/25/2024 Telephone [facility] at the [address] [phone] Vijay Schroeder MD Referral Request from Last 3 Months Allergies No known active allergies Medications clobetasoL (TEMOVATE) 0.05 % cream APPLY ONTO THE SKIN ONCE A DAY 30 g 1 4 Active valACYclovir (VALTREX) 1 gram tablet Take 1 tablet (1,000 mg total) by mouth daily 90 tablet 4 Active atorvastatin (LIPITOR) 20 mg tablet Take 1 tablet (20 mg total) by mouth daily 90 tablet 3 5 Active levothyroxine (SYNTHROID) 150 mcg tablet Take 1 tablet (150 mcg total) by mouth daily 90 tablet 3 5 Active rivaroxaban (Xarelto) 20 mg tablet Take 1 tablet (20 mg total) by mouth daily with dinner 90 tablet 3 5 Active sertraline (ZOLOFT) 100 mg tablet Take 1 tablet (100 mg total) by mouth daily 90 tablet 3 5 Active levothyroxine (SYNTHROID) 150 mcg tablet TAKE 1 TABLET BY MOUTH ONCE A DAY 90 tablet 3 3 06/29/19 25 Discontinued atorvastatin (LIPITOR) 20 mg tablet Take 1 tablet (20 mg total) by mouth daily 90 tablet 3 4 06/29/19 25 Discontinued sertraline (ZOLOFT) 100 mg tablet TAKE 1 TABLET(100 MG) BY MOUTH DAILY 90 tablet 3 5 06/29/19 25 Discontinued rivaroxaban (Xarelto) 20 mg tablet Take 1 tablet (20 mg total) by mouth daily 90 tablet 1 5 06/29/19 25 Discontinued Active Problems Problem Noted Date Diagnosed Date Lichen sclerosus et atrophicus 09/21/2022 Right otitis media with effusion 06/08/2020 Assessment & Plan (07/12/2022 12:47 PM CDT): Treat with amoxicillin. 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 I will have her consult with Dr. Bateman for possible resection of this vallecular cyst. Otorrhagia of right ear 11/08/2018 Assessment & Plan (11/08/2018 2:36 PM CDT): Right ear tube removed. Fungal OE. Clotrimazole drops. Keep ear dry. 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 Small effusion present today. Her right aural fullness improved after cerumen removal. She will follow-up in 3 months with an audiogram and we will consider replacing a tube at that time if needed. Assessment & Plan (01/15/2019 12:04 PM CDT): Right ear tube placed with some difficulty given the cartilage reconstruction. I will have her return in 2 weeks with a repeat audiogram. If the ear tube does not stay in place, I may consider taking her to the operating room for a subannular tube. Assessment & Plan (12/28/2018 5:46 PM CDT): Right TM appears retracted. Audio shows decreased hearing on the right. Plan to RTC in 2 weeks- will place ear tube if hearing not improved. Assessment & Plan (11/08/2018 2:35 PM CDT): Continue amplification of right ear when otorrhea resolved. Conductive hearing loss of r ight ear with restricted hearing of left ear 02/16/2018 Overview (02/16/2018): Added automatically from request for surgery [id number] Assessment & Plan (07/12/2022 12:46 PM CDT): Follow-up with ENT/otology. Former patient of Dr. Bee. Assessment & Plan (01/29/2019 9:32 AM CDT): Right T-tube in good position. Her hearing is improved after the ear tube placement. Return to clinic in 6 months. Assessment & Plan (08/13/2018 5:38 PM CDT): Right ear tube placed. RTC 3 mos with repeat audio. Assessment & Plan (06/29/2018 9:39 AM CDT): Right TM well healed. ABG improved on today's audio from prior. Difficult to visualize ME space. RTC 6 weeks- consider myringotomy, possible tube if hearing not better. Perforation of right tympanic membrane 8 Overview (07/03/2017): Added automatically from request for surgery [id number] Anxiety, generalized 06/07/2016 Overview (08/26/2016): MICHELLE (generalized anxiety disorder) Assessment & Plan (03/15/2023 2:43 PM KEY ACCOUNT REPRESENTATIVE): Anxiety well controlled with sertraline. Pure hypercholesterolemia 05/02/2016 Overview (07/07/2016): Hypercholesterolaemia Assessment & Plan (03/26/2024 9:45 AM KEY ACCOUNT REPRESENTATIVE): Target LDL less than 100. Continue current diet and atorvastatin. Check CMP and FLP. Assessment & Plan (03/15/2023 2:43 PM KEY ACCOUNT REPRESENTATIVE): Target LDL less than 100. Continue current diet and atorvastatin. Assessment & Plan (07/12/2022 12:46 PM CDT): Target LDL less than 100. Continue current diet and atorvastatin. Assessment & Plan (12/20/2021 11:39 AM CDT): Target LDL less than 100. Continue current diet and atorvastatin. Check CMP and FLP. Assessment & Plan (06/16/2021 8:40 PM CDT): Target LDL less than 100. Continue current diet and atorvastatin. Fracture of radius 08/13/2015 Tendinitis of wrist 08/13/2015 Acquired hypothyroidism 07/17/2015 Overview (07/07/2016): Acquired hypothyroidism Assessment & Plan (03/26/2024 9:45 AM KEY ACCOUNT REPRESENTATIVE): Continue with levothyroxine. Check free T4 and TSH. Assessment & Plan (03/15/2023 2:43 PM KEY ACCOUNT REPRESENTATIVE): Continue with levothyroxine. Check CBC, free T4 and TSH. Assessment & Plan (07/12/2022 12:46 PM CDT): Continue with levothyroxine. Assessment & Plan (12/20/2021 11:38 AM CDT): Continue with levothyroxine. Check free T4 and TSH. Assessment & Plan (06/16/2021 8:40 PM CDT): Continue levothyroxine. Recurrent pulmonary embolism 12/18/2012 Overview (07/06/2016): Pulmonary embolism Assessment & Plan (03/26/2024 9:45 AM KEY ACCOUNT REPRESENTATIVE): Continuing chronic anticoagulation with Xarelto. Check CBC and CMP. Assessment & Plan (03/15/2023 2:43 PM KEY ACCOUNT REPRESENTATIVE): Continue chronic anticoagulation with Xarelto. Check CBC. Assessment & Plan (07/12/2022 12:46 PM CDT): On chronic anticoagulation with Xarelto. Assessment & Plan (12/20/2021 11:39 AM CDT): Continue anticoagulation with Xarelto. Assessment & Plan (06/16/2021 8:47 PM CDT): Second venous thromboembolic event (August 2020); will remain on chronic anticoagulation lifetime. MICHELLE (generalized anxiety disorder) 12/18/2012 Overview (07/08/2016): ANXIETY STATE NOS Assessment & Plan (03/26/2024 9:45 AM KEY ACCOUNT REPRESENTATIVE): Mood stable on sertraline. Assessment & Plan (07/12/2022 12:46 PM CDT): It has been on sertraline for over 20 years. Started at the time of patient's father's passing. Assessment & Plan (12/20/2021 11:39 AM CDT): Anxiety well controlled with sertraline. Continue current medications. Assessment & Plan (06/16/2021 8:40 PM CDT): Mood stable on sertraline. Continue current medications. Resolved Problems Problem Noted Date Diagnosed Date Resolved Date Adiposity 01/02/2014 11/04/2016 Overview (07/07/2016): Obesity Hypothyroidism 12/18/2012 11/04/2016 Overview (07/08/2016): HYPOTHYROIDISM NOS Immunizations Immunization Administration Dates Next Due COVID-19 MRNA (MODERNA) .5 M L (50 MCG) VACCINE (12 YEARS AND UP) 01/02/2024 Influenza, Quadrivalent, Pam l Culture-based MDCK, Antibiotic Free, Intramuscular 02/05/2019 Influenza, Quadrivalent, Pam l Culture-based MDCK, Preservative Free, Antibiotic Free, Intramuscular 02/05/2019 Influenza, Quadrivalent, Hig h Dose, Preservative Free, Intrr 12/20/2021,11/15/2019 Influenza, Quadrivalent, Spl it, Intramuscular 04/11/2013 Influenza, Quadrivalent, Spl it, Preservative Free, Intramuscular 01/02/2017 Influenza, Trivalent, High D ose, Split, Preservative Free, Intramuscular 01/31/2018 Influenza, Trivalent, IM (MDV) 02/01/2013 Influenza, Unspecified 01/02/2024,01/10/2023,04/2020 FUZE Fit For A Kid! SARS-CoV-2 Monovalent Vaccination (12+ Yrs) VIDAL-READY TO USE 11/04/2021 Pfizer SARS-CoV-2 Monovalent Vaccination (12+ Yrs) PURPLE 12/02/2020,06/04/2020,05/14/2020 Pfizer Sars-Cov-2 Bivalent V accination (12+ YRS) 01/04/2022 Pneumococcal Conjugate PCV 13 09/13/2017 Pneumococcal Polysaccharide PPV23 09/19/2018 Sars-cov-2 Covid-19 Desi, Balbir mandujano, Jasbir/randi Ba.1 01/20/2023 ZOSTER LIVE 04/03/2013 ZOSTER Recombinant 01/20/2020,11/15/2019 Social History Tobacco Use Types Packs/Day Years Used Date Smoking Tobacco: Never Smokeless Tobacco: Never Tobacco Cessation:Counseling Given: Not Answered Alcohol Use Standard Drinks/Week Comments No 0 (1 standard drink = 0.6 oz pur e alcohol) AUDIT-C Answer Date Recorded Q1: How often do you have a drink containing alcohol? Never 03/15/2023 Q2: How many drinks containi ng alcohol do you have on a typical day when you are drinking? Patient does not drink Q3: How often do you have si x or more drinks on one occasion? Never 03/15/2023 PHQ-2 Answer Date Recorded PHQ-2 Total Score (If total score is 3 or more points, staff should administer the PHQ-9) 0 03/26/2024 Comments No Sex and Gender Information Value Date Recorded Sex Assigned at Not on file Legal Sex Female 2:59 AM KEY ACCOUNT REPRESENTATIVE Gender Identity Not on file Sexual Orientation Not on file Last Filed Vital Signs Vital Sign Reading Time Taken Comments Blood Pressure 112/64 03/26/2024 8:02 AM KEY ACCOUNT REPRESENTATIVE Pulse 74 03/26/2024 8:02 AM KEY ACCOUNT REPRESENTATIVE Temperature 36.8 C (98.3 F) 12/21/2018 1:12 PM CDT Respiratory Rate 18 03/15/2023 1:10 PM KEY ACCOUNT REPRESENTATIVE Oxygen Saturation 99% 03/15/2023 1:10 PM KEY ACCOUNT REPRESENTATIVE Inhaled Oxygen Concentration - - Weight 92.1 kg (203 lb) 03/26/2024 8:02 AM KEY ACCOUNT REPRESENTATIVE Height 160 cm (5' 3 ) 03/26/2024 8:02 AM KEY ACCOUNT REPRESENTATIVE Body Mass Index 35.96 03/26/2024 8:02 AM KEY ACCOUNT REPRESENTATIVE Plan of Treatment Not on file Medical Devices Implanted Type Area Home Theatre Technician Device Identifier Shelf Expiration Date Model / Serial / Lot Plate Plate Right: Wrist [employer] [id number] Alloderm 4x2cm Allograft Regenerative Freeze Dried Thin Matrix - [id number] Implanted:Qty: 1 on 01/05/2018 by Guanaco Uribe MD at [facility] Right: Ear [employer] 09/01/2019 [id number] / / [id number] Implantech -05 Allied[employer] 3x2in Nonreinforced Permanent Implantable Thk.005in - [id number] Implanted:Qty: 1 on 02/27/2018 by Stevie Bee MD at [facility] Right: Ear Implantech [id number] 08/08/2022 / / [id number] Procedures Procedure Name Priority Date/Time Associated Diagnosis Comments SCREENING MAMMOGRAM BILATERAL W RAMIRO Schedule Routine, Read Routine (OP Routine) 07/02/2024 1:37 PM CDT Screening mammogram, encounter for DEXA AXIAL SKELETON BONE DENSITY 1 OR MORE SITES Schedule Routine, Read Routine (OP Routine) 05/28/2020 12:54 PM KEY ACCOUNT REPRESENTATIVE Post-menopause COLONOSCOPY REPORT 11/24/2016 from Last 3 Months or Most Recently Relevant to Health Maintenance Results * Screening Mammogram Bilateral W Ramiro (07/02/2024 1:37 PM CDT) Anatomical Region Laterality Modality Breast Bilateral Mammography Narrative 07/03/2024 5:16 PM CDT Mammogram Technique: Bilateral Digital Breast Tomosynthesis, Bilateral C-view 2D Screening mammogram. Views obtained: bilateral craniocaudal and bilateral mediolateral oblique. Computer Aided Detection was performed. Mammogram Findings: The present examination has been compared to prior imaging studies performed at [facility] on 05/25/2020, and at [facility] on 08/05/2021 and 05/10/2023. There are scattered areas of fibroglandular density. There is no suspicious abnormality in either breast. Impression: There is no mammographic evidence of malignancy. Annual screening mammography is recommended. OVERALL FINAL ASSESSMENT: BI-RADS CATEGORY 1: Negative. Procedure Note Damian Walker MD - 07/03/2024 Mammogram Technique: Bilateral Digital Breast Tomosynthesis, Bilateral C-view 2D Screening mammogram. Views obtained: bilateral craniocaudal and bilateral mediolateral oblique. Computer Aided Detection was performed. Mammogram Findings: The present examination has been compared to prior imaging studies performed at [facility] on 05/25/2020, and at [facility] on 08/05/2021 and 05/10/2023. There are scattered areas of fibroglandular density. There is no suspicious abnormality in either breast. Impression: There is no mammographic evidence of malignancy. Annual screening mammography is recommended. OVERALL FINAL ASSESSMENT: BI-RADS CATEGORY 1: Negative. us Self Screening Mammogram IMG MAMMO PROCEDURES Fi nal Result * Dexa Axial Skeleton Bone Density 1 or 2 Site (05/28/2020 12:54 PM KEY ACCOUNT REPRESENTATIVE) Anatomical Region Laterality Modality Body N/A Digital Radiogra phy 05/28/2020 1:15 PM KEY ACCOUNT REPRESENTATIVE Impressions 05/28/2020 3:19 PM KEY ACCOUNT REPRESENTATIVE 1. The bone mineral density of the lumbar spine is normal. 2. The bone mineral density of the left femoral neck is mildly decreased. 3. The bone mineral density of the left total hip is normal. 4. Overall, the above findings are diagnostic of low bone mass (osteopenia) by WHO criteria. 5. Based on the FRAX fracture risk model, the 10-year probability for major osteoporotic fracture is 15% and that for hip fracture is 2.0%. This 10-year fracture risk estimate was calculated using the risk factors noted in the history above, along with the femoral neck bone density. FRAX is intended to help guide treatment decisions in men over age 50 and postmenopausal women with low bone mass (osteopenia). The National Osteoporosis Foundation (NOF) recommends that FDA-approved medical therapies be considered in postmenopausal women and men age 50 years and older with osteoporosis and those with low bone mass whose 10-year fracture probability by FRAX is >= 20% for major osteoporotic fracture or >= 3% for hip fracture. However, all treatment decisions require clinical judgment and consideration of individual patient factors, including patient preferences, comorbidities, previous drug use, risk factors not captured in the FRAX model (e.g., frailty, falls, vitamin D deficiency, increased bone turnover, interval significant decline in bone density) and possible under- or overestimation of fracture risk by FRAX. General comments regarding interpretation of bone density measurements: A) In children, premenopausal woman and males under age 50 not at increased risk for fractures only Z-scores, not T-scores are used to indicate risk. A Z-score above -2.0 is defined as within the expected range for age and Z-score at or less than -2.0 is below the expected range for age . A Z-score below the expected range for age in a patient with recent fractures and/or chronic corticosteroid treatment is consistent with a diagnosis of osteoporosis. B) In post menopausal women and males over 50, comparison of the measured bone mineral density with the average value in young normal subjects (the T-score ) has been found to be useful in assessing fracture risk. Fracture risk approximately doubles for each 1.0 standard deviation (SD) in individual's hip or spine bone mineral density is below the average value of young normal subjects. The World Health Organization (WHO) has defined T-scores of -1.0 to -2.5 as diagnostic of low bone mass (OSTEOPENIA), and T-scores of -2.5 or lower to be diagnostic of OSTEOPOROSIS, based on the site of lowest bone density. Note that there will be a change in reporting format and reference databases as patients move from the younger population (group A) to the older population (group B) The National Osteoporosis Foundation (www.nof.org) recommends adequate intake of calcium and vitamin D and regular weight-bearing exercise in all patients. They recommend pharmacologic treatment in postmenopausal women and men age 50 and older presenting with any of the followin) Osteoporosis, after appropriate evaluation to exclude secondary causes. 2) A hip or vertebral (clinical or radiographic) fracture, regardless of the bone density. 3) Low bone mass (Osteopenia) and one or more of: other prior fractures, secondary causes associated with high risk of fracture (such as glucocorticoid use or total immobilization), or computed high risk of fracture (10-yr probability of hip fracture >= 3% or a 10-yr probability of any major osteoporosis-related fracture >= 20% based on the [place].-adapted WHO algorithm), available at http://www.shef.ac.uk/FRAX). Dictated by: Miriam Mann M.D. The radiology attending physician has personally reviewed this study, and had reviewed and/or edited this written report and agrees with it. Electronically signed by: Jo Ann Hidalgo M.D. Narrative 05/28/2020 3:19 PM KEY ACCOUNT REPRESENTATIVE BONE DENSITOMETRY OF THE SPINE AND HIP DATE OF STUDY: 05/28/2020 HISTORY: 70-year-old postmenopausal woman with prior fragility fracture. No current or recent antiresorptive medications. Evaluate bone mineral density. Additional risk factors for fracture: previous fracture, increased risk of secondary osteoporosis. FINDINGS (SPINE): The bone mineral density of L1, L2, L3 was assessed by dual-energy x-ray absorptiometry. The average bone mineral density within this region is 1.188 gm/sq-cm. This is 3.5 standard deviations above the mean of the average bone mineral density for age- and gender-matched subjects (the Z-score). It is 1.5 standard deviations above the mean peak bone mineral density in young adults (the T-score). L4 excluded due to sclerosis resulting in degenerative change differences. FINDINGS (FEMORAL NECK): The bone mineral density of the left femoral neck was assessed by dual-energy x-ray absorptiometry. The average bone mineral density within the femoral neck region is 0.662 gm/sq-cm. This is equal to the mean of the average bone mineral density for age- and gender-matched subjects (the Z-score). It is 1.7 standard deviations below the mean peak bone mineral density in young adults (the T-score). FINDINGS (TOTAL HIP): The bone mineral density of the left hip was assessed by dual-energy x-ray absorptiometry. The average bone mineral density within the total hip region is 0.817 gm/sq-cm. This is 0.4 standard deviations above the mean of the average bone mineral density for age- and gender-matched subjects (the Z-score). It is 1.0 standard deviations below the mean peak bone mineral density in young adults (the T-score). SUMMARY OF CURRENT RESULTS: Region BMD T-score Z-score AP Spine (L1, L2, L3) 1.188 1.5 3.5 Femoral Neck (Left) 0.662 -1.7 0.0 Total Hip (Left) 0.817 -1.0 0.4 Procedure Note Jo Ann Hidalgo MD - 05/28/2020 BONE DENSITOMETRY OF THE SPINE AND HIP DATE OF STUDY: 05/28/2020 HISTORY: 70-year-old postmenopausal woman with prior fragility fracture. No current or recent antiresorptive medications. Evaluate bone mineral density. Additional risk factors for fracture: previous fracture, increased risk of secondary osteoporosis. FINDINGS (SPINE): The bone mineral density of L1, L2, L3 was assessed by dual-energy x-ray absorptiometry. The average bone mineral density within this region is 1.188 gm/sq-cm. This is 3.5 standard deviations above the mean of the average bone mineral density for age- and gender-matched subjects (the Z-score). It is 1.5 standard deviations above the mean peak bone mineral density in young adults (the T-score). L4 excluded due to sclerosis resulting in degenerative change differences. FINDINGS (FEMORAL NECK): The bone mineral density of the left femoral neck was assessed by dual-energy x-ray absorptiometry. The average bone mineral density within the femoral neck region is 0.662 gm/sq-cm. This is equal to the mean of the average bone mineral density for age- and gender-matched subjects (the Z-score). It is 1.7 standard deviations below the mean peak bone mineral density in young adults (the T-score). FINDINGS (TOTAL HIP): The bone mineral density of the left hip was assessed by dual-energy x-ray absorptiometry. The average bone mineral density within the total hip region is 0.817 gm/sq-cm. This is 0.4 standard deviations above the mean of the average bone mineral density for age- and gender-matched subjects (the Z-score). It is 1.0 standard deviations below the mean peak bone mineral density in young adults (the T-score). SUMMARY OF CURRENT RESULTS: Region BMD T-score Z-score AP Spine (L1, L2, L3) 1.188 1.5 3.5 Femoral Neck (Left) 0.662 -1.7 0.0 Total Hip (Left) 0.817 -1.0 0.4 IMPRESSION: 1. The bone mineral density of the lumbar spine is normal. 2. The bone mineral density of the left femoral neck is mildly decreased. 3. The bone mineral density of the left total hip is normal. 4. Overall, the above findings are diagnostic of low bone mass (osteopenia) by WHO criteria. 5. Based on the FRAX fracture risk model, the 10-year probability for major osteoporotic fracture is 15% and that for hip fracture is 2.0%. This 10-year fracture risk estimate was calculated using the risk factors noted in the history above, along with the femoral neck bone density. FRAX is intended to help guide treatment decisions in men over age 50 and postmenopausal women with low bone mass (osteopenia). The National Osteoporosis Foundation (NOF) recommends that FDA-approved medical therapies be considered in postmenopausal women and men age 50 years and older with osteoporosis and those with low bone mass whose 10-year fracture probability by FRAX is >= 20% for major osteoporotic fracture or >= 3% for hip fracture. However, all treatment decisions require clinical judgment and consideration of individual patient factors, including patient preferences, comorbidities, previous drug use, risk factors not captured in the FRAX model (e.g., frailty, falls, vitamin D deficiency, increased bone turnover, interval significant decline in bone density) and possible under- or overestimation of fracture risk by FRAX. General comments regarding interpretation of bone density measurements: A) In children, premenopausal woman and males under age 50 not at increased risk for fractures only Z-scores, not T-scores are used to indicate risk. A Z-score above -2.0 is defined as within the expected range for age and Z-score at or less than -2.0 is below the expected range for age . A Z-score below the expected range for age in a patient with recent fractures and/or chronic corticosteroid treatment is consistent with a diagnosis of osteoporosis. B) In post menopausal women and males over 50, comparison of the measured bone mineral density with the average value in young normal subjects (the T-score ) has been found to be useful in assessing fracture risk. Fracture risk approximately doubles for each 1.0 standard deviation (SD) in individual's hip or spine bone mineral density is below the average value of young normal subjects. The World Health Organization (WHO) has defined T-scores of -1.0 to -2.5 as diagnostic of low bone mass (OSTEOPENIA), and T-scores of -2.5 or lower to be diagnostic of OSTEOPOROSIS, based on the site of lowest bone density. Note that there will be a change in reporting format and reference databases as patients move from the younger population (group A) to the older population (group B) The National Osteoporosis Foundation (www.nof.org) recommends adequate intake of calcium and vitamin D and regular weight-bearing exercise in all patients. They recommend pharmacologic treatment in postmenopausal women and men age 50 and older presenting with any of the followin) Osteoporosis, after appropriate evaluation to exclude secondary causes. 2) A hip or vertebral (clinical or radiographic) fracture, regardless of the bone density. 3) Low bone mass (Osteopenia) and one or more of: other prior fractures, secondary causes associated with high risk of fracture (such as glucocorticoid use or total immobilization), or computed high risk of fracture (10-yr probability of hip fracture >= 3% or a 10-yr probability of any major osteoporosis-related fracture >= 20% based on the [place].-adapted WHO algorithm), available at http://www.shef.ac.uk/FRAX). Dictated by: Miriam Mann M.D. The radiology attending physician has personally reviewed this study, and had reviewed and/or edited this written report and agrees with it. Electronically signed by: Jo Ann Hidalgo M.D. Vijay Schroeder MD IMG DXA PROCEDURES Final Resu lt * COLONOSCOPY REPORT (11/24/2016) Anatomical Region Laterality Modality Other Provider Scanning GI PROCEDURE ORDERABLES Final Result from Last 3 Months or Most Recently Relevant to Health Maintenance Insurance [facility] Care Teams Paper Coating Machine Operator Relationship Specialty Start Date End Date Vijay Schroeder MD [facility] [address] [place] [address] PCP - General 07/01/16 Vijay Schroeder MD [address] [place] [address] [address] [place] [address] PCP - Essence Attributed PCP 11/01/18
--- OUTSIDE RECORDS SUMMARY | 2024-07-13 11:55 | XMS_ITS | Clinical Summary ---
Author Organization [facility] Address [address] [place] [address] Care Team Providers Care Evp Name Role Phone Vijay Schroeder MD Primary Care Provider [phone] Vijay Schroeder MD Unavailable [phone] Allergies No known active allergies Medications clobetasoL [...] (02/16/2018): Added automatically from request for surgery [id number] Assessment & Plan (07/12/2022 12:46 PM CDT): [...] (07/03/2017): Added automatically from request for surgery [id number] Anxiety, generalized 06/07/2016 Overview (08/26/2016): MICHELLE (generalized anxiety disorder) Assessment & Plan (03/15/2023 2:43 PM DYE MACHINE TENDER): Anxiety well controlled with sertraline. Pure hypercholesterolemia 05/02/2016 Overview (07/07/2016): Hypercholesterolaemia Assessment & Plan (03/26/2024 9:45 AM DYE MACHINE TENDER): Target LDL less than 100. Continue current diet and atorvastatin. Check CMP and FLP. Assessment & Plan (03/15/2023 2:43 PM DYE MACHINE TENDER): Target LDL less than 100. Continue current [...] hypothyroidism Assessment & Plan (03/26/2024 9:45 AM DYE MACHINE TENDER): Continue with levothyroxine. Check free T4 and TSH. Assessment & Plan (03/15/2023 2:43 PM DYE MACHINE TENDER): Continue with levothyroxine. Check CBC, free T4 and TSH. Assessment & Plan (07/12/2022 12:46 PM CDT): Continue with levothyroxine. Assessment & Plan (12/20/2021 11:38 AM CDT): Continue with levothyroxine. Check free T4 and TSH. Assessment & Plan (06/16/2021 8:40 PM CDT): Continue levothyroxine. Recurrent pulmonary embolism 12/18/2012 Overview (07/06/2016): Pulmonary embolism Assessment & Plan (03/26/2024 9:45 AM DYE MACHINE TENDER): Continuing chronic anticoagulation with Xarelto. Check CBC and CMP. Assessment & Plan (03/15/2023 2:43 PM DYE MACHINE TENDER): Continue chronic anticoagulation with Xarelto. Check CBC. [...] NOS Assessment & Plan (03/26/2024 9:45 AM DYE MACHINE TENDER): Mood stable on sertraline. Assessment & Plan [...] Hypothyroidism 12/18/2012 11/04/2016 Overview (07/08/2016): HYPOTHYROIDISM NOS Encounters Date Type Department Care Team Description 07/02/2024 1:09 PM CDT - 07/02/2024 11:59 PM CDT Hospital Encounter [address] [place] [address] Screening mammogram, encounter for Discharge Disposition: Discharge to home or self care 06/25/2024 Telephone [facility] [address] [place] [address] Referral, Self Mammogram 05/20/2024 Orders Only [facility] at the [address] [place] [address] Vijay Schroeder MD 04/25/2024 Telephone [facility] at the [address] [place] [address] Vijay Schroeder MD Referral Request from Last 3 Months Immunizations Immunization Administration Dates Next Due COVID-19 [...] Trivalent, IM (MDV) 02/01/2013 Influenza, Unspecified 01/02/2024,01/10/2023,04/2020 Pfizer SARS-CoV-2 Monovalent Vaccination (12+ Yrs) VIDAL-READY TO USE 11/04/2021 Pfizer SARS-CoV-2 Monovalent Vaccination (12+ Yrs) PURPLE 12/02/2020,06/04/2020,05/14/2020 Pfizer Sars-Cov-2 Bivalent V accination (12+ YRS) 01/04/2022 Pneumococcal Conjugate PCV 13 09/13/2017 Pneumococcal Polysaccharide PPV23 09/19/2018 Sars-cov-2 Covid-19 Mrna, Bi valent, Original/omicron Ba.1 01/20/2023 ZOSTER LIVE 04/03/2013 ZOSTER Recombinant 01/20/2020,11/15/2019 Surgical History Surgery Date Site/Laterality Comments TENDON REPAIR wrist EAR SURGERY multiple ROTATOR CUFF REPAIR 04/03/2012 - 04/02/2013 Right DILATION AND CURETTAGE OF UTERUS SECTION x 2 HYSTERECTOMY 04/03/1987 - 04/02/1988 SUE, BS for endo and AUB, in her 30s BREAST BIOPSY CATARACT EXTRACTION W/ INTRAOCULAR LENS IMPLANT Bilateral TYMPANOPLASTY 01/05/2018 Right Medical History Medical History Date Comments Pulmonary embolism (HCC) 12/18/2012 after s urgery - no recurrence and no meds Hypothyroidism Postmenopausal Obesity (BMI 30.0-34.9) BMI 35 Anxiety Perforation of right tympanic membrane Conductive hearing loss in right ear Dyslipidemia Endometriosis Family History Medical History Relation Name Comments Coronary artery disease Father Diabetes Father Coronary artery disease Mother Hypertension Mother Relation Name Status Comments Father (Age 78) Mother (Age 82) Social History Tobacco Use Types Packs/Day Years [...] on file Legal Sex Female 2:59 AM DYE MACHINE TENDER Gender Identity Not on file Sexual Orientation Not on file Obstetrics History Para Term AB IAB SAB Ectopic Multiple Livin g Live Births 3 2 2 1 1 2 Date Outcome GA Total Labor Labor/2nd/3rd Weight Sex Type Anes PTL Amy A1 A5 Name Clin SAB 34w0d 25w0d Comments Preeclampsia x 2 Daughter 25 weeks, son few weeks early, still CD x 2 Last Filed Vital Signs Vital Sign Reading Time Taken Comments Blood Pressure 112/64 03/26/2024 8:02 AM DYE MACHINE TENDER Pulse 74 03/26/2024 8:02 AM DYE MACHINE TENDER Temperature 36.8 C (98.3 F) 12/21/2018 1:12 PM CDT Respiratory Rate 18 03/15/2023 1:10 PM DYE MACHINE TENDER Oxygen Saturation 99% 03/15/2023 1:10 PM DYE MACHINE TENDER Inhaled Oxygen Concentration - - Weight 92.1 kg (203 lb) 03/26/2024 8:02 AM DYE MACHINE TENDER Height 160 cm (5' 3 ) 03/26/2024 8:02 AM DYE MACHINE TENDER Body Mass Index 35.96 03/26/2024 8:02 AM DYE MACHINE TENDER Plan of Treatment Health Maintenance Due Date Last Done Comments Hepatitis C Screening 1950 DTaP/Tdap/Td Vaccine (1 - Tdap) 1963 Hepatitis B Screening 1970 Osteoporosis Screening-Bone Density Scan 05/28/2022 05/28/2020 Covid-19 Vaccine (2023-2 5 season) 2024 01/02/2024, 01/20/2023, 01/04/2022, Additional history exists Depression Screening 03/26/2025 03/26/2024, 03/15/2023, 07/12/2022, Additional history exists Fall Risk Assessment 03/26/2025 03/26/2024, 03/15/2023, 07/12/2022, Additional history exists Well Visit 65+ 03/26/2025 03/26/2024, 03/03, 12/20/2021, Additional history exists Breast Cancer Screening-Mammogram 07/02/2025 07/02/2024, 05/10/2023, 08/05/2021, Additional history exists Colon Cancer Screening-Colonoscopy 11/24/2026 11/24/2016 Colon Cancer Screening-CT Colonography Discontinued 11/24/2016 Colon Cancer Screening-DNA Stool Discontinued 11/25/19 17 Colon Cancer Screening-FIT Discontinued 11/24/2016 Colon Cancer Screening-Sigmoidoscopy Discontinued 11/24/2016 Pneumococcal vaccine 65+ Completed 09/19/2018, 09/01 Zoster Vaccine Completed 01/20/2020, 11/01, 04/03/2013 Influenza Vaccine Completed 01/02/2024, , 12/20/2021, Additional history exists Medical Devices Implanted Type Area Campaign Fundraiser Device Identifier Shelf Expiration Date Model / Serial / Lot Plate Plate Right: Wrist [employer] [id number] Alloderm 4x2cm Allograft Regenerative Freeze Dried Thin Matrix - [id number] Implanted:Qty: 1 on 01/05/2018 by Guanaco Uribe MD at [facility] Right: Ear [employer] 09/01/2019 [id number] / / [id number] Implantech 700-05 Alliedsil 3x2in Nonreinforced Permanent Implantable Thk.005in - [id number] Implanted:Qty: 1 on 02/27/2018 by Stevie Bee MD at [facility] Right: Ear Implantech [id number] 08/08/2022-05 / / [id number] Procedures Procedure Name Priority Date/Time Associated Diagnosis Comments SCREENING MAMMOGRAM BILATERAL W RAMIRO Schedule Routine, Read Routine (OP Routine) 07/02/2024 1:37 PM CDT Screening mammogram, encounter for DEXA AXIAL SKELETON BONE DENSITY 1 OR MORE SITES Schedule Routine, Read Routine (OP Routine) 05/28/2020 12:54 PM DYE MACHINE TENDER Post-menopause COLONOSCOPY REPORT 11/24/2016 from Last 3 [...] compared to prior imaging studies performed at [facility] on 05/25/2020, and at [facility] on 08/05/2021 and 05/10/2023. There are scattered [...] compared to prior imaging studies performed at [facility] on 05/25/2020, and at [facility] on 08/05/2021 and 05/10/2023. There are scattered areas of fibroglandular density. There is no suspicious abnormality in either breast. Impression: There is no mammographic evidence of malignancy. Annual screening mammography is recommended. OVERALL FINAL ASSESSMENT: BI-RADS CATEGORY 1: Negative. us Self Screening Mammogram IMG MAMMO PROCEDURES Fi nal Result * Dexa Axial Skeleton Bone Density 1 or 2 Site (05/28/2020 12:54 PM DYE MACHINE TENDER) Anatomical Region Laterality Modality Body N/A Digital Radiogra phy 05/28/2020 1:15 PM DYE MACHINE TENDER Impressions 05/28/2020 3:19 PM DYE MACHINE TENDER 1. The bone mineral density of the [...] Ann Hidalgo M.D. Narrative 05/28/2020 3:19 PM DYE MACHINE TENDER BONE DENSITOMETRY OF THE SPINE AND HIP [...] Most Recently Relevant to Health Maintenance Insurance [facility] Care Teams Evp Relationship Specialty Start Date End Date Vijay Schroeder MD [address] [place] [address] [address] [place] [address] PCP - General 07/01/16 Vijay Schroeder MD [address] [place], [place] [address] [place] [address] PCP - Essence Attributed PCP 11/01/18
[2024-07-13 11:58] VITALS: BP 130/75; PULSE 66; RESP 18; TEMP 36.7; O2SAT 97
--- OUTSIDE RECORDS SUMMARY | 2024-07-13 12:06 | XMS_ITS | Continuity of Care Document ---
Author Organization [facility] Address [address] [place] [address] Phone Care Team Providers Care Personal Banking Representative Name Role Phone Lourdes Turner OT Unavailable Unavailable Procedures Procedure Date Therapeutic Activities Therapeutic Exercise Neuromuscular Re-Ed Manual Therapy Hot or Cold Pack Progress Note Therapeutic Activities Therapeutic Exercise Manual Therapy Hot or Cold Pack Neuromuscular Re-Ed Therapeutic Activities Therapeutic Exercise Manual Therapy Hot or Cold Pack Therapeutic Activities Therapeutic Exercise Manual Therapy Hot or Cold Pack OT Evaluation Low Complexity Therapeutic Activities Therapeutic Exercise Advance Directives Directive Yes / No Effective Date File Name No Information Encounters Encounter Description Practice Location Reason(s) For Visit Diagnoses Date Provider Providers Copied on Encounter [facility], [place], [place], [id number], [place] tel:[phone] [place] No Information 2 Johnny Arevalo . [facility], [address], [place], [place], [id number], [place] tel:[phone] [place] No Information 2 Harig Lourdes. . Referring Provider: Lyndon Díaz, Nikki1 [facility] [address], [place], [address]. tel:[phone] [place] [address], [place], [place], [id number], tel:[phone] [place] No Information Apr-0 6-202 2 Harig Lourdes. . Referring Provider: Lyndon Díaz, Nikki1 [facility] [address], [place], [address]. tel:[phone] [place] [address], [place], [place], [id number], tel:[phone] [place] No Information Apr-0 - 2 Harig Lourdes. . Referring Provider: Lyndon Díaz, Nikki1 [facility] [address], [place], [address]. tel:[phone] [place] [address], [id number], tel:[phone] [place] No Information Mar-3 0202 2 Harig Lourdes. . Referring Provider: Lyndon Díaz, Nikki1 [facility] [address], [place], [address]. tel:[phone] [place] [address], [id number], tel:[phone] [place] No Information Mar-2 2 Rodríguez Mattea. . Referring Provider: Lyndon Díaz, Nikki1 [facility] [address], [place], [address]. tel:[phone] Family History Family Member Type Diagnosis Age At Onset No Information Payers Payer name Insurance type Covered alliance party ID Georgiaa kennadoyle(s) [employer]ence Insurance CI [id number] Social History Type Description Quantity Date Captured [...]
--- NOTE | 2024-07-13 12:09 | ED.LOWEXIN ---
HPI - Extremity Injury (Lower) General Chief Complaint: Extremity Injury, Lower Stated Complaint: R foot pain Time Seen by Provider: 07/13/24 12:00 Source: patient and family () Mode of arrival: ambulatory Limitations: no limitations History of Present Illness HPI Narrative: Patient presents with right foot the particularly right toe pain. Approximately 3 weeks ago she and her were on an [employer] trip [place] the [place] and she accidentally dropped a 50 lb suitcase on her foot. She notes that was getting better but over the last several days seems to be getting worse. The big toe has been hurting for few weeks now. No history of arthritis. No history of congestive heart failure, hypertension, angina, myocardial infarction, CHF, TIA/CVA. She has been using Voltaren gel at home. No paresthesias. She particularly experiences pain when she attempts to flex or extend the toe. She is on Xarelto although anticoagulant for history of PE. Patient denies any ecchymosis along the plantar aspect of the foot at any time although she did note that she had some mid/distal ecchymosis on the dorsum initially, now resolved Related Data Home Medications ?Medication ?Instructions ?Recorded ?Confirmed ?Last Taken ?Type atorvastatin 20 mg tablet 20 mg PO DAILY 07/28/20 07/28/20 07/27/20 History levothyroxine 150 mcg tablet 150 mcg PO DAILY 07/28/20 07/28/20 07/27/20 History sertraline 100 mg tablet 100 mg PO DAILY 07/28/20 07/28/20 07/27/20 History Allergies Allergy/AdvReac Type Severity Reaction Status Date / Time No Known Allergies Allergy Verified 07/30/20 16:24 [facility] Past Medical History Medical History Pulmonary embolism Family History Family History Sibling Patient's sister is in good health Mother Family history of malignant neoplasm of breast in first degree relative Patient's mother is Father Family history of malignant neoplasm of esophagus Patient's father is Social History Social History Smoking status: Never smoker Alcohol intake: never Substance use: never Living arrangements: with family Additional living arrangements comments: Gender identity (if verbalized by the patient): Female Spiritual care concerns: No Exam Narrative: GENERAL: Well-appearing, well-nourished, and in no acute distress. HEAD: Normocephalic, atraumatic. EYES: Non injected, non icteric ENT: Nares clear, no rhinorrhea or epistaxis. NECK: Supple. CHEST: Speaking in full sentences. No respiratory distress. HEART: Regular rate and rhythm. . ABDOMEN: Soft, nondistended. EXTREMITIES: Normal range of motion. No lower extremity edema. No significant joint redness. No tenderness to palpation of the MCP. Patient is able to flex and extend the toe against resistance. Patient has some pain and tenderness just proximal to the right toe MCP. Palpable DP pulse. No subungual hematoma. SKIN: Warm, dry, no rash. No open wound. No erythema (cellulitis), induration, significant swelling, ecchymosis, NEURO: No focal deficits. Alert and oriented x3. PSYCH: Normal mood and affect. Course Vital Signs Vital signs: Vital Signs Temperature 98.1 F 07/13/24 11:58 Pulse Rate 66 07/13/24 11:58 Respiratory Rate 18 07/13/24 11:58 Blood Pressure 130/75 07/13/24 11:58 Pulse Oximetry 97 07/13/24 11:58 Oxygen Delivery Room Air 07/13/24 11:58 Temperature 98.1 F 07/13/24 11:58 Pulse Rate 66 07/13/24 11:58 Respiratory Rate 18 07/13/24 11:58 Blood Pressure 130/75 07/13/24 11:58 Pulse Oximetry 97 07/13/24 11:58 Oxygen Delivery Room Air 07/13/24 11:58 MDM - Extremity Injury (Lower) MDM Narrative Medical decision making narrative: Patient presents with right toe/distal pain. She dropped a suitcase on her foot approximately 3 weeks ago and has been improving this seemed to been worsening over the last several days to weeks. In the emergency department they are afebrile with vital signs within normal limits. Xray, uric acid level, and acetaminophen ordered. Acute Gout Diagnostic Rule Risk stratifies for gout versus gout arthritis and helps determine which patients benefit most from joint aspiration. Male sex (No 0, Yes +2): 0 Previous patient reported arthritis attack (No 0, Yes +2): 0 Onset within 1 day (No 0, Yes +0.5): 0 Joint redness (No 0, Yes +1): 0 1st metatarsophalangeal joint involvement (No 0, Yes +2.5): Hypertension or >/= 1 cardiac diseases - angina, MA, CHF, stroke/TIA, PVD) (No 0. Yes +1.5): 0 Serum uric acid >5.88mg/dL/0.35 mmol/L (No 0, Yes +3.5): 0 0?points 2.2% prevalence of gout in original study. Gout unlikely and other diagnoses should be considered. Xray negative for acute process. Patient discharged home in stable condition. Provided Rx for acetaminophen and advised f/u with PCP. Differential Diagnosis Differential diagnosis: Likely other (Fracture, dislocation, bony contusion, considered gout) Lab Data Attestation: I reviewed the patient's lab results. Labs: Lab Results 07/13/24 Range/Units 12:26 Uric Acid 5.6 (2.5-7.5) mg/dL Imaging Data Radiologist's impression: FINDINGS/ IMPRESSION: There are no fractures or dislocations.Joint spaces are within normal limits Discharge Plan Discharge Clinical Impression: Pain of right great toe, Foot pain, right Patient Disposition: Home Condition: Stable Instructions: Antibiotic Form, Metatarsalgia (DC) Additional Instructions: No fracture or dislocation. Given you are on Xarelto, you are to continue to avoid taking NSAIDs like ibuprofen, Motrin, Naprosyn, naproxen, Advil, Aleve; however, acetaminophen/Tylenol is safe to take for pain, maximum 4000 mg per day. Follow-up with primary care physician. If you do not have 1 the name of the doctors listed below. Return to the emergency department with any new or worsening symptoms. Patient Language: Danish Prescriptions: New acetaminophen 500 mg capsule 1,000 mg PO Q6H PRN (Reason: pain) Qty: 30 0RF No Action atorvastatin 20 mg tablet 20 mg PO DAILY sertraline 100 mg tablet 100 mg PO DAILY levothyroxine 150 mcg tablet 150 mcg PO DAILY Xarelto 15 mg Tablet 15 mg PO BID Qty: 40 0RF Xarelto 20 mg tablet 20 mg PO DAILY Qty: 30 2RF Rx Instructions: must administer with evening meal, Patient will complete Xarelto 15mg BID for 20 day thereafter will start 20mg daily. Follow-up/Referrals: PHYSICIAN NOT ON STAFF,NONSTAFF [Primary Care Provider] - Yared Harrison MD [Physician] - Stand Alone Forms: Work/School Release IP Time of Disposition: 12:54
[2024-07-13] MEDS: ACETAMINOPHEN 500 MG TABLET 1000 MG PO (12:34)
[2024-07-13 12:39] LABS: Uric Acid 5.6 mg/dL (2.5-7.5)
--- NOTE | 2024-07-13 12:43 | PC.NURSE ---
pt dropped tylenol tablet on ground new tab pulled from [facility]
== END 2024-07-13 13:00 | disposition home or self-care (01) ==
PROVIDERS: Emergency Provider Student in an Organized Health Care Education/Training Program
DX: S99.921A Unspecified injury of right foot, initial encounter (principal); Z86.711 Personal history of pulmonary embolism; Z79.01 Long term (current) use of anticoagulants; W20.8XXA Other cause of strike by thrown, projected or falling object, initial encounter
CPT/HCPCS: 36415; 73660; 84550; 99283; A9270